=== PATIENT | female | born 1995 | race Caucasian/White ===

== ENCOUNTER 2021-02-06 11:03 | Outpatient (CLI) | payer MEDICAID | END 2021-02-06 23:59 | disposition home or self-care (01) | LOC: RAD 11:03 | PROVIDERS: ATTEND Specialist | DX: N83.11 Corpus luteum cyst of right ovary (principal); O36.4XX0 Maternal care for intrauterine death, not applicable or unspecified; Z3A.09 9 weeks gestation of pregnancy | CPT/HCPCS: 76801 ==